=== PATIENT | female | born 1950 | race Caucasian/White ===

== ENCOUNTER 2016-11-11 05:40 | Day surgery (SDC) | payer MEDICARE, OTHER ==
[2016-11-11] MEDS ORDERED: Lactated Ringers 1,000 ML IV SCH (06:30)
--- NOTE | 2016-11-11 08:51 | OP ---
SURGERY DATE/TIME: 11/11/2016809 PREOPERATIVE DIAGNOSIS: Dysphagia to solids. POSTOPERATIVE DIAGNOSES: 1) Hiatal hernia. 2) Schatzki's ring. PROCEDURE: Esophagogastroduodenoscopy. SURGEON: Dr. Scott. ANESTHESIA: Medications were given by the anesthesia department. HISTORY: The patient is a 65 year old white female who reports that she has been having trouble with swallowing solids particularly meat. She reports she has no trouble with liquids. She has had no weight loss. The patient is felt the need to have endoscopic evaluation. She was appraised of the risks of the procedure including the risk of perforation, phlebitis, untoward reaction to medication, bleeding and missed lesions. The patient verbalized her understanding and desired to have the procedure performed. DESCRIPTION OF PROCEDURE: The patient was given the medications by the anesthesia department. She had continuous pulse oximetry, ECG monitoring, intermittent blood pressure monitoring and tidal CO2 monitoring during the examination. She was placed in the left lateral decubitus position. A bite block was placed and the flexible Olympus gastroscope was used to intubate the oropharynx. A view of the esophagus was developed which appeared to be normal to the distal third where there appeared to be a hiatal hernia present. Just prior to this appears to be a Schatzki's ring which appears to be fairly widely patent. The stomach was entered where normal gastric rugal folds were seen and these distended nicely with insufflation of air. The scope was passed along the greater curvature of the stomach to the antrum. The pylorus is encountered and intubated. Duodenum inspected and found to be normal. The scope is withdrawn towards the stomach. Again, a retroflex view was obtained of the lesser curvature, fundus and cardia regions of the stomach which again apparent hiatal hernia but no mucosal lesions otherwise were noted. There were incidentally noted very small gastric polyps developing. The scope with careful inspected removed from the patient. No mucosal lesions otherwise being encountered. The scope was then removed from the patient who tolerated the procedure well and was sent back to the [facility] in good condition.
[2016-11-11] MEDS ORDERED: DIPRIVAN 200 MG/20 ML IV ONE (09:00)
[2016-11-11 09:52] VITALS: BP 155/84; PULSE 77; O2SAT 97
== END 2016-11-11 09:45 | disposition home or self-care (01) ==
LOC: SDC 05:40
PROVIDERS: ATTEND Family Medicine
PROC: 0DJ08ZZ Inspection of Upper Intestinal Tract, Via Natural or Artificial Opening Endoscopic (ICD-10-PCS; principal; 2016-11-11)
DX: R13.10 Dysphagia, unspecified (principal); K44.9 Diaphragmatic hernia without obstruction or gangrene; K22.2 Esophageal obstruction
CPT/HCPCS: 00740; J2704

== ENCOUNTER 2017-03-03 09:26 | Day surgery (SDC) | payer MEDICARE, OTHER ==
[~2017-03-03 09:26] MED LIST: Ak-Dilate OPHTHALMIC*** 0.71 ML, Cyclogyl 1% OPHTH SOL 5 ML 0.71 ML, GATIFLOXACIN 0.5% ... OP ONE; Lactated Ringers 1,000 ML IV ONE; Lactated Ringers 1,000 ML IV SCH; TETRACAINE 0.5% STERI-UNIT SOL OP ONE
[2017-03-03] MEDS ORDERED: DIPRIVAN 200 MG/20 ML IV ONE (09:27)
[2017-03-03] MEDS ORDERED: ACETAZOLAMIDE 250 MG TABLET PO ONE (10:00)
[2017-03-03] MEDS ORDERED: Zofran 4 MG/2 ML VIAL IV PRN (10:00)
[2017-03-03] MEDS ORDERED: BSS 500 ML, Fortaz/Tazicef 1 GM** 0.2 G IO ONE ×2 (10:00)
[2017-03-03] MEDS ORDERED: LIDOCAINE HCL 1% AMPUL 5 ML IJ ONE (10:00)
[2017-03-03] MEDS ORDERED: Epinephrine Preservative Free 1 MG/ML INTRAOP ONE (10:00)
[2017-03-03] MEDS ORDERED: BETADINE 5% OPHTHALMIC 30 ML OP ONE (10:00)
[2017-03-03] MEDS: TETRACAINE 0.5% STERI-UNIT SOL OP ONE ×2 (10:26→10:59)
[2017-03-03 12:32] VITALS: BP 165/71
[2017-03-03 12:46] VITALS: PULSE 66; O2SAT 95
--- NOTE | 2017-03-03 13:56 | OP ---
DATE/TIME OF OPERATION: 03/03/2017 TIME DICTATED: 1202 PREOPERATIVE DIAGNOSIS: Senile cataract of left eye. POSTOPERATIVE DIAGNOSIS: Senile cataract of left eye. SURGEON: Doug Peterson MD CABLE MOCK UP ASSEMBLER: None. OPERATION: Cataract extraction of left eye with an intraocular lens implant. STANDARD __X___ COMPLEX ANESTHESIA: MAC. ___X___ Monitored anesthesia care in combination with topical and intra-cameral anesthesia (because of the established specific risk of reflux, arrhythmias, or an anxiety attack associated with ocular manipulation as well as difficulty of the firmware software verification engineer to manage such potentially catastrophic events while simultaneously attempting to complete the surgical procedure, it was deemed necessary for the patient's safety to have an anesthesiologist or a nurse architecture technician present during the procedure whenever possible. The anesthesiologist or the nurse architecture technician was utilized to monitor and regulate the intravenous sedation of the patient, so the patient was cooperative, relaxed, and comfortable). Topical anesthesia using Tetracaine eye drops together with intra cameral anesthesia using Lidocaine 1% MPF. The nurse was utilized to monitor the patient. ANESTHESIA PROVIDER: Dariusz Ulrich CRNA. COMPLICATIONS: None. BLOOD LOSS: None. INDICATIONS: The patient is undergoing cataract surgery in the hopes of eliminating the visual complaints and difficulty. PROCEDURE: After arriving at the facility's outpatient surgery area, an IV was started; the patient was given 5 mg of p.o. Versed. (If an anesthesia provider was not monitoring the patient) The patient was then given topical anesthetic Tetracaine eye drops. A cotton pellet was soaked into a solution of a combination of Zymaxid 0.5%, Cruz-Synephrine 2.5% and Ocufen (other drops might have been substituted referenced in the patient's record). The pellet was inserted by the RN into the lower conjunctival cul-de-sac with a sterile forceps and left for 20 minutes. The pellet was then removed by the RN with a sterile forceps before taking the patient to the operating room. The preoperative area nurse identified the patient and marked the correct eye to be operated on. I identified the correct eye to be operated on and marked it appropriately in the outpatient surgery area. The patient was then taken into the operating room. Tetracaine eye drops were installed again in the correct eye. The eyelids and the lashes and the lid margins were scrubbed with Betadine solution. One drop of the diluted Betadine solution was placed in the conjunctival cul-de-sac for 45 seconds and then was irrigated. A drop of Tetracaine Gel was placed in the conjunctival cul-de-sac. The patient's forehead was taped to secure it during the procedure. The patient was monitored. The patient was then draped in the usual way for this procedure. An eye speculum was used to separate the eyelids. The eye was then fixated and a temporal 2.5 mm incision was made in the clear cornea temporally at the limbus. Through the incision, 0.25 cc of 1% non-preserved lidocaine was injected into the anterior chamber for intracameral anesthesia. The anterior chamber was then filled with viscoelastic. The pupil was small. I felt that it would be safer to mechanically dilate the pupil. A Malyugin ring was used at this point which dilated the pupil. That was removed at the end of the procedure prior to aspiration of the viscoelastic from the anterior chamber and posterior to the intraocular lens implant. The cataract had a great amount of cortical changes. That rendered seeing the anterior capsule difficult for a safe performance of an anterior capsulotomy. I injected an air bubble into the anterior chamber. I then injected 1 ML of vision blue solution into the anterior chamber. The vision blue solution was irrigated from the anterior chamber after 30 seconds. The anterior capsule was stained which facilitated performing the anterior capsulotomy safely. After that was completed, a cystotome was introduced into the anterior chamber and a round anterior capsulotomy was performed. The capsule was removed by a forceps. Hydrodissection was next carried utilizing a 25-gauge cannula and balanced salt solution to delineate the cortical material from the capsule and the nucleus from the cortical material. The nucleus was rotated freely into the capsular bag with no difficulty. The phaco tip of the [employer] Phacoemulsifier was introduced into the anterior chamber and two grooves were made into the nucleus 90 degrees apart. Using two spatulas resulted into the nucleus being fractured into four quadrants. The phaco tip was then used to remove each quadrant of the nucleus. Viscoelastic was used during this process to protect the corneal endothelium. Once the entire nucleus was removed, the phaco tip then was removed and the irrigation tip was introduced into the eye and the cortex was removed. The posterior capsule was polished. It was noticed that there was a tear into the posterior capsule with few vitreous strands into the pupil plan. An anterior vitrectomy was performed. An 18.50 diopter, [id number], posterior chamber lens implant, was inspected and found to be grossly normal. The implant was inserted into the implant injector cartridge; Viscoelastic again was introduced into the anterior chamber, which filled the capsular bag. The implant injector's cartridge tip was placed at the limbal wound and the posterior chamber implant was released into the capsular bag and rotated appropriately. The implant was found to be into the capsular bag and it was centered. 0.2 ml of Tri-Moxi was introduced via 27 gauge cannula into the vitreous cavity through the ciliary processes. Viscoelastic was aspirated from the anterior chamber and posterior to the intraocular lens implant from the capsular bag using the irrigating tip. The anterior chamber was irrigated and filled with 5 cc antibiotic solution (500 cc of BSS plus 2 ml of Fortaz 100 mg/ml) ( if patient was not allergic to the medication). The lips of the corneal incision were hydrated using BSS solution. The anterior chamber was checked and found to be water tight. ___X___ One drop each of antibiotic, steroid and NSAID drops (refer to chart for drops used) were placed in the conjunctival cul-de-sac of the operated eye. Patient tolerated the procedure quite well and left the operating room in satisfactory condition. DISCHARGE SUMMARY: The patient was released in stable condition. The patient and those with the patient were given an instruction sheet as of how to care for the eye after surgery as well as counseling on any abnormal laboratory studies by the postoperative RN. The patient was also given an appointment card for follow-up in the office and is to call immediately for any difficulties including but not limited to pain in the eye, decreased vision, discharge from the eye, headache and or fever. DISCHARGE DIAGNOSIS: Pseudophakia of left eye.
== END 2017-03-03 13:04 | disposition home or self-care (01) ==
LOC: SDC 09:26
PROVIDERS: ATTEND Ophthalmology
PROC: 08RK3JZ Replacement of Left Lens with Synthetic Substitute, Percutaneous Approach (ICD-10-PCS; principal; 2017-03-03)
PROC: 08B53ZZ Excision of Left Vitreous, Percutaneous Approach (ICD-10-PCS; 2017-03-03)
DX: H25.9 Unspecified age-related cataract (principal); I10 Essential (primary) hypertension; Z79.899 Other long term (current) drug therapy
CPT/HCPCS: 66984; 67005; C1780; 00142; J0171; J2704; A9270-GY

== ENCOUNTER 2017-05-28 08:05 | Emergency (ER) | payer MEDICARE, OTHER ==
[2017-05-28 08:21] VITALS: PULSE 68; O2SAT 97
--- NOTE | 2017-05-28 08:34 | ERPHSYRPT ---
- History of Present Illness Time Seen by Provider: 05/28/17 08:31 Source: patient Exam Limitations: no limitations Patient Subjective Stated Complaint: back pain, hypertension Triage Nursing Assessment: pt alert and oreinted x3, able to communicate apporpriately, calm cooperative with staff, upper back pain center, rates pain 1 , denies nausea and vomiting, states some dizziness, reports she has hypertension and it has been "high" recently Physician History: The patient is a 66-year-old female with a friend complaining of left-sided back pain that began about 3 hours ago at 5:30 AM. Now that she is arrived in the ER, her back pain is eased up and is gone. She had some dizziness this morning. She denies shortness of breath, nausea, or vomiting. She denies being sweaty. She has recently been having difficulty controlling her high blood pressure. She takes losartan and carvedilol for high blood pressure. She saw her family doctor 2 days ago for the high blood pressure. At that time the patient admitted that she frequently forgets to take her evening dose of her blood pressure medicine. Her doctor asked her to not miss any more doses and to follow-up in one week. Her past medical history is significant for GERD, cataracts, retinal tear, and high blood pressure. Timing/Duration: today, hour(s) (3) Method of Injury: unknown Quality: sharp Back Pain Location: T-spine Severity of Pain-Max: moderate Severity of Pain-Current: none Modifying Factors: Improves With: nothing Associated Symptoms: dizziness, No nausea, No vomiting Allergies/Adverse Reactions: No Known Drug Allergies Allergy (Verified 05/28/17 08:28) reported by pt and Home Medications: Losartan Potassium 50 mg [Cozaar 50 MG] 50 mg PO DAILY 02/01/15 [History] Alendronate Sodium 70 mg [Fosamax 70 MG] 70 mg PO Q7D@0600 11/05/16 [ History] Naproxen 500 mg PO BID 11/05/16 [History] Carvedilol 6.25 mg [Coreg 6.25 MG] 6.25 mg PO BID 03/02/17 [History] Omeprazole 20 MG [Prilosec 20 mg] 20 mg PO DAILY 03/02/17 [History] Hx Tetanus, Diphtheria Vaccination/Date Given: No Hx Influenza Vaccination/Date Given: No Hx Pneumococcal Vaccination/Date Given: Yes - Review of Systems Constitutional: No Fever, No Chills Eyes: No Symptoms Ears, Nose, & Throat: No Symptoms Respiratory: No Cough, No Dyspnea Cardiac: No Chest Pain, No Edema, No Syncope Abdominal/Gastrointestinal: No Abdominal Pain, No Nausea, No Vomiting, No Diarrhea Genitourinary Symptoms: No Dysuria Musculoskeletal: Back Pain Skin: No Rash Neurological: Dizziness Psychological: No Symptoms Endocrine: No Symptoms Hematologic/Lymphatic: No Symptoms Immunological/Allergic: No Symptoms All Other Systems: Reviewed and Negative - Past Medical History Pertinent Past Medical History: Yes Neurological History: No Pertinent History, Other ENT History: Other Cardiac History: Hypertension Respiratory History: No Pertinent History Endocrine Medical History: No Pertinent History Musculoskeletal History: No Pertinent History GI Medical History: No Pertinent History History: No Pertinent History Psycho-Social History: No Pertinent History Female Reproductive Disorders: No Pertinent History Other Medical History: compression fracture, retinal repair - Past Surgical History Past Surgical History: Yes Neuro Surgical History: No Pertinent History Cardiac: No Pertinent History Respiratory: No Pertinent History Gastrointestinal: No Pertinent History Genitourinary: No Pertinent History Musculoskeletal: No Pertinent History Female Surgical History: No Pertinent History Other Surgical History: BUNNY KNEES - Social History Smoking Status: Never smoker Exposure to second hand smoke: No Drug Use: none Patient Lives Alone: Yes - Female History Hx Now: No - Nursing Vital Signs Nursing Vital Signs: Initial Vital Signs Temperature 97.9 F 05/28/17 08:14 Pulse Rate 68 05/28/17 08:14 Respiratory Rate 20 05/28/17 08:14 Blood Pressure 214/90 05/28/17 08:14 O2 Sat by Pulse Oximetry 97 05/28/17 08:14 Pain Scale Pain Intensity [] 2 Pain Intensity 0 - Physical Exam General Appearance: no apparent distress, alert Eye Exam: PERRL/EOMI, eyes nml inspection Ears, Nose, Throat Exam: normal ENT inspection Neck Exam: normal inspection, non-tender, supple, full range of motion, No meningismus, No midline tenderness Respiratory Exam: normal breath sounds, lungs clear, No respiratory distress Cardiovascular Exam: regular rate/rhythm, normal heart sounds Gastrointestinal Exam: soft, No tenderness, No mass Pelvic Exam: not done Rectal Exam: not done Back Exam: point tenderness (left thoracic paraspinous muscle) Extremity Exam: normal inspection, normal range of motion, No calf tenderness, No pedal edema Neurologic Exam: alert, oriented x 3, cooperative, clinical psychologist licensed II-XII nml as tested, normal mood/affect, nml station & gait, sensation nml, No motor deficits Skin Exam: normal color, warm, dry, No rash SpO2 Interpretation: normal SpO2: 97 Oxygen Delivery: Room Air - Course EKG Interpreted by Me: RATE, Sinus Rhythm, NORMAL INTERVALS, Right Bundle Branch Block, NORMAL ST-T, Other (no change comp EKG 11/02/12.) - Radiology Exams Chest X-ray Interpretation: Reviewed by me, Teleradiologist Report, Negative (no acute per Dr Alva.) Ordered Tests: Active Orders 24 hr Category Date Time Status EKG-ER Only STAT Care 05/28/17 08:34 Active IV Insertion STAT Care 05/28/17 08:34 Active CHEST 2 VIEWS (PA AND LAT) Stat Exams 05/28/17 08:35 Completed CBC W DIFF Stat Lab 05/28/17 08:47 Completed CMP Stat Lab 05/28/17 08:47 Completed Lactic Acid Stat Lab 05/28/17 08:50 Completed TROPONIN Q3H Lab 05/28/17 08:51 Completed TROPONIN Q3H Lab 05/28/17 11:45 Ordered TROPONIN Q3H Lab 05/28/17 14:45 Ordered TROPONIN Q3H Lab 05/28/17 17:45 Ordered TROPONIN Q3H Lab 05/28/17 20:45 Ordered UA W/RFX UR CULTURE Stat Lab 05/28/17 09:30 Completed Medication Summary Discontinued Medications Generic Name Dose Route Start Last Admin Trade Name Manuelq PRN Reason Stop Dose Admin Labetalol HCl 10 mg 05/28/17 08:36 05/28/17 08:51 Trandate 20 Mg/5 Ml Syringe IV 05/28/17 08:37 10 mg STAT ONE Administration Labetalol HCl Confirm 05/28/17 08:40 Trandate 20 Mg/5 Ml Syringe Administered 05/28/17 08:41 Dose 20 mg IV .STK-MED ONE Lab/Rad Data: Laboratory Result Diagrams 05/28/17 08:47 05/28/17 08:47 Laboratory Results 05/28/17 05/28/17 05/28/17 Range/Units 09:30 08:51 08:50 WBC (4.0-10.5) K/mm3 RBC (4.1-5.4) M/mm3 Hgb (12.0-16.0) gm/dl Hct (35-47) % MCV (78-100) fl MCH (26-32) pg MCHC (32-36) g/dl RDW (11.5-14.0) % Plt Count (150-450) K/mm3 MPV (6-9.5) fl Gran % (36.0-66.0) % Lymphocytes % (24.0-44.0) % Monocytes % (0.0-12.0) % Eosinophils % (0.00-5.0) % Basophils % (0.0-0.4) % Basophils # (0-0.4) Sodium (136-145) mEq/L Potassium (3.5-5.1) mEq/L Chloride (98-107) mEq/L Carbon Dioxide (21-32) mEq/L Anion Gap (5-15) MEQ/L BUN (9-20) mg/dL Creatinine (0.55-1.30) mg/dl Estimated GFR ML/MIN Glucose (70-110) MG/DL Lactic Acid 1.7 (0.4-2.0) Calcium (8.5-10.1) mg/dL Total Bilirubin (0.2-1.0) mg/dL AST (15-37) U/L ALT (12-78) U/L Alkaline Phosphatase (46-116) U/L Troponin I < 0.017 (0.000-0.056) ng/ml Serum Total Protein (6.4-8.2) gm/dL Albumin (3.4-5.0) g/dL Ur Collection Type CLEAN CATCH Urine Color YELLOW (YELLOW) Urine Appearance CLEAR (CLEAR) Urine pH 5.0 (5-6) Ur Specific [place] 1.010 (1.005-1.025) Urine Protein NEGATIVE (Negative) Urine Ketones NEGATIVE (NEGATIVE) Urine Blood NEGATIVE (0-5) Pola/ul Urine Nitrite NEGATIVE (NEGATIVE) Urine Bilirubin NEGATIVE (NEGATIVE) Urine Urobilinogen NORMAL (0-1) mg/dL Ur Leukocyte Esterase NEGATIVE (NEGATIVE) Urine Culture Reflexed NO (NO) Urine Glucose NEGATIVE (NEGATIVE) mg/dL Specimen Received 05/28/17 0930 05/28/17 05/28/17 Range/Units 08:47 08:47 WBC 7.0 (4.0-10.5) K/mm3 RBC 4.33 (4.1-5.4) M/mm3 Hgb 11.9 L (12.0-16.0) gm/dl Hct 36.7 (35-47) % MCV 84.8 (78-100) fl MCH 27.4 (26-32) pg MCHC 32.4 (32-36) g/dl RDW 14.0 (11.5-14.0) % Plt Count 256 (150-450) K/mm3 MPV 10.8 H (6-9.5) fl Gran % 58.6 (36.0-66.0) % Lymphocytes % 29.8 (24.0-44.0) % Monocytes % 9.4 (0.0-12.0) % Eosinophils % 1.8 (0.00-5.0) % Basophils % 0.4 (0.0-0.4) % Basophils # 0.03 (0-0.4) Sodium 142 (136-145) mEq/L Potassium 3.8 (3.5-5.1) mEq/L Chloride 107 (98-107) mEq/L Carbon Dioxide 25.3 (21-32) mEq/L Anion Gap 13.6 (5-15) MEQ/L BUN 13 (9-20) mg/dL Creatinine 0.94 (0.55-1.30) mg/dl Estimated GFR > 60 ML/MIN Glucose 119 H (70-110) MG/DL Lactic Acid (0.4-2.0) Calcium 8.9 (8.5-10.1) mg/dL Total Bilirubin 0.50 (0.2-1.0) mg/dL AST 19 (15-37) U/L ALT 25 (12-78) U/L Alkaline Phosphatase 100 (46-116) U/L Troponin I (0.000-0.056) ng/ml Serum Total Protein 7.2 (6.4-8.2) gm/dL Albumin 4.0 (3.4-5.0) g/dL Ur Collection Type Urine Color (YELLOW) Urine Appearance (CLEAR) Urine pH (5-6) Ur Specific [place] (1.005-1.025) Urine Protein (Negative) Urine Ketones (NEGATIVE) Urine Blood (0-5) Pola/ul Urine Nitrite (NEGATIVE) Urine Bilirubin (NEGATIVE) Urine Urobilinogen (0-1) mg/dL Ur Leukocyte Esterase (NEGATIVE) Urine Culture Reflexed (NO) Urine Glucose (NEGATIVE) mg/dL Specimen Received - Progress Progress: improved Progress Note: 05/28/17 10:08 pain completely gone. Counseled pt/family regarding: lab results, diagnosis, need for follow-up, rad results - Departure Time of Disposition: 10:09 Departure Disposition: Home Clinical Impression: Back pain, HTN (hypertension) Condition: Stable Critical Care Time: No Referrals: NATALIE ST [Primary Care Provider] - Additional Instructions: You had point tenderness in your back muscle. Your blood pressure was elevated. You were given labetalol 10 mg by IV for your blood pressure. Continue to take your blood pressure medicine as directed. Follow-up next week as scheduled with your primary care doctor.
[2017-05-28] MEDS ORDERED: TRANDATE 20 MG/5 ML SYRINGE IV ONE ×2 (08:36→08:40)
[2017-05-28 09:05] LABS: BASOPHIL % 0.4 % (0.0-0.4); Basophil (Absolute #) 0.03 (0-0.4); Eosinophil % 1.8 % (0.00-5.0); Eosinophil (Absolute #) 0.13 (0-0.5); Granulocyte Absolute (ANC) 4.12 (1.4-6.9); Granulocytes % 58.6 % (36.0-66.0); Hematocrit 36.7 % (35-47); Hemoglobin 11.9 gm/dl (12.0-16.0); Lymphocytes % 29.8 % (24.0-44.0); Mean Cell Volume 84.8 fl (78-100); Mean Corpuscular Hgb Concent. 32.4 g/dl (32-36); Mean Platelet Volume 10.8 fl (6-9.5); Monocyte (Absolute #) 0.66 (0.0-1.3); Monocytes % 9.4 % (0.0-12.0); Platelet Count 256 K/mm3 (150-450); Red Blood Count 4.33 M/mm3 (4.1-5.4)
[2017-05-28 09:06] LABS: Mean Corpuscular Hemoglobin 27.4 pg (26-32)
--- NOTE | 2017-05-28 09:24 | XRAY ---
Indication: Hypertension. Comparison: February 18, 2017. PA/lateral chest again hyperinflated with minimal bibasilar discoid atelectasis/scarring and hiatal hernia. Remaining lungs clear. Heart is not enlarged. Vascularity normal. Bony thorax intact again with mild osteopenia and degenerative changes. Impression: Stable nonacute hyperinflated chest with chronic features.
[2017-05-28 09:25] LABS: ALKALINE PHOSPHATASE 100 U/L (46-116); ANION GAP 13.6 MEQ/L (5-15); BLOOD UREA NITROGEN 13 mg/dL (9-20); CHLORIDE 107 mEq/L (98-107); Calcium 8.9 mg/dL (8.5-10.1); Carbon Dioxide 25.3 mEq/L (21-32); Creatinine 1 0.94 mg/dl (0.55-1.30); EST GLOMERULAR FILTRATION RATE > 60 ML/MIN; Glucose 119 MG/DL (70-110); Potassium 3.8 mEq/L (3.5-5.1); SGOT/AST 19 U/L (15-37); SGPT/ALT 25 U/L (12-78); SODIUM 142 mEq/L (136-145); Total Protein 7.2 gm/dL (6.4-8.2)
[2017-05-28 09:58] LABS: Appearance CLEAR (CLEAR); Bilirubin NEGATIVE (NEGATIVE); Blood NEGATIVE Ery/ul (0-5); Glucose NEGATIVE (NEGATIVE); Ketones NEGATIVE (NEGATIVE); Leukocyte Esterase NEGATIVE (NEGATIVE); Nitrite NEGATIVE (NEGATIVE); Protein,Urine Dip NEGATIVE (Negative); Urobilinogen NORMAL mg/dL (0-1)
[2017-05-28 10:07] VITALS: BP 152/80
== END 2017-05-28 10:35 | disposition home or self-care (01) ==
LOC: ED 08:05
DX: M54.6 Pain in thoracic spine (principal); I10 Essential (primary) hypertension; Z79.899 Other long term (current) drug therapy
CPT/HCPCS: 36000; 36415; 71046; 80053; 81002; 83605; 84484; 85025; 93005; 93041; 96374; 99284; 99285

== ENCOUNTER 2021-10-11 17:06 | Emergency (ER) | payer MEDICARE, OTHER ==
--- NOTE | 2021-10-11 17:08 | ERPHSYRPT ---
- History of Present Illness Time Seen by Provider: 10/11/21 17:08 Source: patient, family Exam Limitations: no limitations Physician History: This is a 70-year-old female who has a history of hypertension, gastroesophageal reflux disease who fell 2 days ago onto her right hip. Patient states that her right hamstring, right hip and right lower back hurt when she is up and ambulating. She can ambulate. She has no pain when she is laying still. There is no evidence of any rotation or shortening of her right lower extremity. She did not hurt her head or neck. Occurred: days ago (2) Injuries/Pain Location: back, lower extremity (Right hip), lower Loss of Consciousness: no loss of consciousness Quality: aching Severity of Pain-Max: mild (To moderate) Severity of Pain-Current: mild (To moderate) Modifying Factors: Improves With: movement Associated Symptoms (Fall): back pain (Low back pain/lumbar region), extremity injury (Right hip) Allergies/Adverse Reactions: No Known Drug Allergies Allergy (Verified 10/11/21 17:13) reported by pt and Home Medications: Losartan Potassium 50 mg [Cozaar 50 MG] 50 mg PO DAILY 02/01/15 [History] Alendronate Sodium 70 mg [Fosamax 70 MG] 70 mg PO Q7D@0600 11/05/16 [History] Naproxen 500 mg PO BID 11/05/16 [History] Carvedilol [Coreg ] 6.25 mg PO BID 03/02/17 [History] Omeprazole 20 MG [Prilosec 20 mg] 20 mg PO DAILY 03/02/17 [History] Hx Tetanus, Diphtheria Vaccination/Date Given: No Hx Influenza Vaccination/Date Given: No Hx Pneumococcal Vaccination/Date Given: Yes Travel Risk - International Travel Have you traveled outside of the country in past 3 weeks: No - Coronavirus Screening Are you exhibiting any of the following symptoms?: No Close contact with a COVID-19 positive Pt in past 14-21 Days: No - Review of Systems Constitutional: No Symptoms Eyes: No Symptoms Ears, Nose, & Throat: No Symptoms Respiratory: No Symptoms Cardiac: No Symptoms Abdominal/Gastrointestinal: No Symptoms Genitourinary Symptoms: No Symptoms Musculoskeletal: Fall, Injury (Lower back and right hip) Skin: No Symptoms Neurological: No Symptoms Psychological: No Symptoms Endocrine: No Symptoms Hematologic/Lymphatic: No Symptoms Immunological/Allergic: No Symptoms All Other Systems: Reviewed and Negative - Past Medical History Pertinent Past Medical History: Yes Neurological History: No Pertinent History, Other ENT History: Other Cardiac History: Hypertension Respiratory History: No Pertinent History Endocrine Medical History: No Pertinent History Musculoskeletal History: No Pertinent History GI Medical History: No Pertinent History History: No Pertinent History Psycho-Social History: No Pertinent History Female Reproductive Disorders: No Pertinent History Other Medical History: compression fracture, retinal repair - Past Surgical History Past Surgical History: Yes Neuro Surgical History: No Pertinent History Cardiac: No Pertinent History Respiratory: No Pertinent History Gastrointestinal: No Pertinent History Genitourinary: No Pertinent History Musculoskeletal: No Pertinent History Female Surgical History: No Pertinent History Other Surgical History: BUNNY KNEES - Social History Smoking Status: Never smoker Exposure to second hand smoke: No Drug Use: none Patient Lives Alone: Yes - Nursing Vital Signs Nursing Vital Signs: Initial Vital Signs Temperature 96.6 F 10/11/21 17:14 Pulse Rate 86 10/11/21 17:14 Respiratory Rate 18 10/11/21 17:14 Blood Pressure 114/58 10/11/21 17:14 O2 Sat by Pulse Oximetry 95 10/11/21 17:14 Pain Scale Pain Intensity 0 - Elier Coma Score Best Eye Response ([place]): (4) open spontaneously Best Verbal Response (Elier): (5) oriented Best Motor Response (Elier): (6) obeys commands Elier Total: 15 - Physical Exam General Appearance: no apparent distress, alert, anxiety Head Injury: no evidence of injury Eye Exam: PERRL/EOMI, eyes nml inspection ENT Exam: airway nml, nml ext.inspection Neck Exam: supple, trachea midline, full range of motion, normal alignment, normal inspection Respiratory/Chest Exam: No chest tenderness, No respiratory distress Gastrointestinal Exam: No tenderness Rectal Exam: not done Back Exam: normal inspection, decreased range of motion, muscle spasm Extremity Exam: normal inspection, normal range of motion, capillary refill <3 sec, pelvis stable, pain with movement (Right hamstring), tenderness (Right hamstring) Neurologic Exam: alert, oriented x 3, cooperative, activity therapy teacher II-XII nml as tested, normal mood/affect, nml cerebellar function, nml station & gait, sensation nml Skin Exam: normal color, warm, dry SpO2 Interpretation: normal O2 Delivery: Room Air - Course Nursing assessment & vital signs reviewed: Yes Ordered Tests: Active Orders 24 hr Category Date Time Status IV Insertion STAT Care 10/11/21 18:56 Active Oxygen-ED Only Nasal Cannula 2 lpm Care 10/11/21 19:05 Active HIP UNI (2V) INCL PEL IF DONE Stat Exams 10/11/21 19:12 Taken LUMBAR LIMITED (2 OR 3 VIEWS) Stat Exams 10/11/21 17:23 Taken PELVIS WITHOUT CONTRAST [CT] Stat Exams 10/11/21 18:47 Taken Medication Summary Discontinued Medications Generic Name Dose Route Start Last Admin Trade Name Anthony PRN Reason Stop Dose Admin Hydromorphone HCl 0.5 mg 10/11/21 18:57 10/11/21 19:01 Hydromorphone 1 Mg/1ml Inj 1 Mg/Ml Syringe IV 10/11/21 18:58 0.5 mg STAT ONE Administration Hydromorphone HCl Confirm 10/11/21 18:58 Hydromorphone 1 Mg/1ml Inj 1 Mg/Ml Syringe Administered 10/11/21 18:59 Dose 1 mg .ROUTE .STK-MED ONE Ondansetron HCl 4 mg 10/11/21 18:57 10/11/21 19:01 Ondansetron Hcl 4 Mg/2 Ml Vial IV 10/11/21 18:58 4 mg STAT ONE Administration Ondansetron HCl Confirm 10/11/21 18:58 Ondansetron Hcl 4 Mg/2 Ml Vial Administered 10/11/21 18:59 Dose 4 mg .ROUTE .STK-MED ONE - Progress Progress: pain not gone completely Progress Note: 10/11/21 18:59 On the right hip and pelvis x-ray it was difficult for me to determine whether this patient had femoral neck impaction fracture versus degenerative changes. I had the radiologist, Dr. Alva over read the film. He states the x-ray gives an indeterminant reading. Therefore, he recommends a CT of the right hip 10/11/21 20:38 Medical decision making: This patient has what appears to be an isolated greater trochanter fracture on the right side. CT scan shows acute, mildly displaced multi fragmentary fracture of the right proximal femur greater trochanter but no fracture involvement of the femoral neck or head. I discussed, initially, with trauma surgeon Dr. Bey. She was unsure of what treatment plan will be provide this patient and therefore I was transferred to Dr. Heart. I reviewed the patient history, physical findings and CAT scan findings on the right hip and pelvis. I read the radiology report to him. He stated that the patient can go home with pain control and may do toe touching weightbearing only and patient is to follow-up in his office in 1 week. We provided the patient with the address and phone number. Discussed with Dr.: Other (Dr. Yousiftrauma surgeon, Dr. Heart orthopedic surgeon. Both covering for [facility] in [facility]) Counseled pt/family regarding: diagnosis, rad results - Departure Departure Disposition: Home Clinical Impression: Fracture of greater trochanter of right femur Condition: Stable Critical Care Time: No Referrals: DOCTOR,NO FAMILY [Primary Care Provider] - Follow up/PCP as directed Additional Instructions: Toe-touch weightbearing only. Call Dr. Alex (orthopedic surgeon) office on 10/15/2021 to make arrangements for an appointment in approximately 1 week. Take your medication as prescribed. Use ice to the area 3 times a day for the next 48 hours. Follow-up at [facility] or [facility] if symptoms worsen prior to appointment time. They have orthopedic services local telephone operator. Prescriptions: Oxycodone HCl/Acetaminophen [Percocet 5-325 mg Tablet] 1 each PO Q8H PRN PRN #6 tablet MDD 3 PRN Reason: Moderate To Severe Pain
[2021-10-11] MEDS ORDERED: Hydromorphone 1 mg/ml Injection IV ONE (18:57)
[2021-10-11] MEDS ORDERED: Zofran 4 MG/2 ML VIAL IV ONE (18:57)
[2021-10-11] MEDS ORDERED: Hydromorphone 1 mg/ml Injection ONE (18:58)
[2021-10-11] MEDS ORDERED: Zofran 4 MG/2 ML VIAL ONE (18:58)
[2021-10-11] MEDS ORDERED: PERCOCET TABLET 5/325MG PO STA (20:44)
[2021-10-11] MEDS ORDERED: PERCOCET TABLET 5/325MG ONE (20:46)
[2021-10-11 20:54] VITALS: BP 118/63; PULSE 72; O2SAT 92
--- NOTE | 2021-10-12 07:43 | XRAY ---
Indication: Low back pain following fall 2 days ago. Comparison: July 27, 2013 3 view lumbar spine again demonstrates osteopenia, mild levoscoliosis, mild multilevel degenerative spondylosis, and remote T12 fracture. No new/acute bony, articular, or soft tissue abnormalities.
--- NOTE | 2021-10-12 07:45 | XRAY ---
Indication: Pain following fall 2 days ago. Comparison: July 27, 2013 2 view right hip again demonstrates osteopenia and lower lumbar degenerative spondylosis reported separately. Query nondisplaced fracture femur neck better evaluated with CT. No other bony, articular, or soft tissue abnormalities.
--- NOTE | 2021-10-12 07:51 | XRAY ---
Indication: Right hip pain following fall 2 days ago. Multiple contiguous axial images obtained through the pelvis with special attention to the osseous structures. Sagittal and coronal reformatted images obtained. Comparison: July 27, 2013 Osseous structures demineralized. Mild degenerative changes of both hips. No large effusion. Right greater trochanter demonstrates new nondisplaced comminuted fracture with adjacent superficial and deep soft tissue swelling/edema. No other acute fracture, dislocation, or suspicious bony lesions. Visualized noncontrasted soft tissues again demonstrates colonic diverticulosis. Minimal aortoiliac calcifications. Remaining visualized bowel loops, uterus, and bladder are unremarkable for noncontrast exam. Impression: 1. Nondisplaced comminuted fracture right greater trochanter. 2. Chronic findings including osteopenia, bilateral hip degenerative arthropathy, and colonic diverticulosis. Comment: Preliminary interpretation may by [facility]. No critical discrepancy.
== END 2021-10-11 21:07 | disposition home or self-care (01) ==
LOC: ED 17:06
DX: S72.111A Displaced fracture of greater trochanter of right femur, initial encounter for closed fracture (principal); W19.XXXA Unspecified fall, initial encounter; M25.551 Pain in right hip; M79.651 Pain in right thigh; M54.50 Low back pain, unspecified; I10 Essential (primary) hypertension; Z79.899 Other long term (current) drug therapy; Z79.891 Long term (current) use of opiate analgesic
CPT/HCPCS: 36000; 72100; 72192; 73502; 96374; 96375; 99284; J1170; J2405; A9270-GY